=== PATIENT | female | born 1945 | race Caucasian/White ===

== ENCOUNTER 2018-03-06 10:49 | Outpatient (CLI) | payer OTHER | END 2018-03-06 10:55 | disposition home or self-care (01) | LOC: MRI 10:49 | DX: M48.07 Spinal stenosis, lumbosacral region (principal); M54.5 Low back pain | CPT/HCPCS: 72148 ==

== ENCOUNTER 2021-06-26 10:20 | Outpatient (CLI) | payer OTHER | END 2021-06-26 10:23 | disposition home or self-care (01) | LOC: MAMO-SONO 10:20 | PROVIDERS: ATTEND Obstetrics & Gynecology | DX: R92.1 Mammographic calcification found on diagnostic imaging of breast (principal); N60.11 Diffuse cystic mastopathy of right breast; N60.12 Diffuse cystic mastopathy of left breast; Z12.31 Encounter for screening mammogram for malignant neoplasm of breast ==

== ENCOUNTER 2021-10-06 08:45 | Outpatient (CLI) | payer OTHER | END 2021-10-06 08:56 | disposition home or self-care (01) | LOC: SONOGRAMA 08:45 | PROVIDERS: ATTEND Internal Medicine Gastroenterology | DX: N20.0 Calculus of kidney (principal); R10.9 Unspecified abdominal pain ==

== ENCOUNTER 2024-02-20 12:51 | Outpatient (CLI) | payer OTHER | END 2024-02-20 13:00 | disposition home or self-care (01) | LOC: TOM 12:51 | PROVIDERS: ATTEND Psychiatry & Neurology Clinical Neurophysiology | DX: D32.0 Benign neoplasm of cerebral meninges (principal) ==

== ENCOUNTER 2024-03-30 11:22 | Outpatient (CLI) | payer OTHER | END 2024-03-30 11:25 | disposition home or self-care (01) | LOC: NUCLEAR 11:22 | PROVIDERS: ATTEND Internal Medicine | DX: Z95.2 Presence of prosthetic heart valve (principal) ==